=== PATIENT | female | born 1965 | race Caucasian/White ===

== ENCOUNTER 2017-01-24 14:01 | Outpatient (CLI) | payer MEDICAID | END 2017-01-24 14:02 | disposition home or self-care (01) | DX: D68.9 Coagulation defect, unspecified (principal) ==

== ENCOUNTER 2017-01-31 12:35 | Outpatient (CLI) | payer MEDICAID | END 2017-01-31 12:36 | disposition home or self-care (01) | DX: D68.9 Coagulation defect, unspecified (principal) ==

== ENCOUNTER 2017-02-20 10:28 | Outpatient (CLI) | payer MEDICAID | END 2017-02-20 10:29 | disposition home or self-care (01) | DX: D64.9 Anemia, unspecified (principal); D68.9 Coagulation defect, unspecified ==

== ENCOUNTER 2017-03-20 18:46 | Outpatient (CLI) | payer MEDICAID | END 2017-03-20 23:59 | disposition EMS.NT | DX: E16.2 Hypoglycemia, unspecified (principal) ==

== ENCOUNTER 2017-05-08 20:34 | Outpatient (CLI) | payer MEDICAID | END 2017-05-08 20:35 | disposition short-term general hospital (02) | LOC: EMS 20:34 | PROVIDERS: ATTEND Surgery | DX: R52 Pain, unspecified (principal); R53.1 Weakness; Z99.2 Dependence on renal dialysis | CPT/HCPCS: A0425; A0427 ==

== ENCOUNTER 2017-05-31 10:16 | Emergency (ER) | payer MEDICAID ==
--- NOTE | 2017-05-31 11:27 | ED Physician Documentation ---
History of Present Illness - Stated complaint Stated Complaint: SWOLLEN ARM - Chief complaint Chief Complaint: Ext Problem - History obtained from History obtained from: Patient, Family - History of Present Illness Timing: How many days ago (3) - Additonal information Additional information: 51-year-old female with a history of type 1 diabetes for 47 years has developed a swelling in her right arm started with some tenderness at an antecubital site from when she was hospitalized at [facility] 2 weeks ago. She was hospitalized at that time for her renal function being out of control. She is on peritoneal dialysis and required continuous peritoneal dialysis at the time. She has had a similar problem with her left antecubital when an IV caused immediate swelling and required a fasciotomy. She has had this pain in the right antecubital for the past 2 weeks and over the past 3 days she has developed some swelling over the brachial radialis on the right side with a small blister that has now erupted and drained some tiny amount of pus. She felt this area was likely a spider bite several days ago. She has a similar swelling in the axilla on the right side as well. Review of Systems Constitutional: reports: Myalgias, Fatigue. denies: Fever Eyes: denies: Decreased vision Ears: denies: Ear pain Nose: denies: Congestion GI: denies: Vomiting Neurologic: denies: Focal weakness, Numbness PD PAST MEDICAL HISTORY - Past Medical History Cardiovascular: Congestive heart failure, Hypertension, High cholesterol, MS Respiratory: Other Neuro: CVA, Peripheral neuropathy, Motion sickness Endocrine/Autoimmune: Type 1 diabetes GI: Chronic diarrhea : Dialysis, Renal insuffiency, Nocturia Psych: Depression, Anxiety Musculoskeletal: None, Fatigue, Chronic back pain Derm: Herpes zoster - Past Surgical History Past Surgical History: Yes /[employer]: Tubal ligation Cardiovascular: CABG HEENT: Cataracts - Present Medications Home Medications: Ambulatory Orders Medication Instructions Recorded Confirmed Aspirin [Wendy] 81 mg PO DAILY 06/11/13 03/21/17 Insulin Lispro [Humalog] 5 - 10 unit SQ AC 06/11/13 03/21/17 Lovastatin [Mevacor] 20 mg PO HS 06/11/13 03/21/17 Insulin Glargine,Hum.rec.anlog 6 unit SQ BID 11/14/13 03/21/17 [Lantus] Vit B Cmplx 3/FA/Vit C/Biotin 1 each PO DAILY 11/14/13 03/21/17 [Desiree-Bayron Rx Tablet] Acetaminophen 325 - 650 mg PO Q4HR PRN 03/21/17 03/21/17 Ascorbic Acid [Vitamin C] 250 mg PO DAILY 03/21/17 03/21/17 Calcium Carbonate [Tums (Calcium 500 mg PO TID 03/21/17 03/21/17 Carbonate 500mg)] Carvedilol 12.5 mg PO BID 03/21/17 03/21/17 Cholecalciferol (Vitamin D3) 2,000 unit PO DAILY 03/21/17 03/21/17 [Vitamin D] Cyanocobalamin (Vitamin B-12) 500 mcg PO DAILY 03/21/17 03/21/17 [Vitamin B-12 (500 mcg sublingual)] Docusate Sodium 250Mg Capsule 250 mg PO DAILY PRN 03/21/17 03/21/17 [Colace 250Mg Capsule] Loperamide [Imodium] 2 mg PO ONCE PRN 03/21/17 03/21/17 Metoclopramide [Reglan] 5 - 10 mg PO DAILY PRN 03/21/17 03/21/17 Metolazone 5 mg PO DAILY 03/21/17 03/21/17 Nitroglycerin 0.4 mg SL ONCE PRN 03/21/17 03/21/17 Ondansetron HCl [Zofran] 4 mg PO Q4H PRN 03/21/17 03/21/17 Sevelamer Carbonate [Renvela] 800 mg PO TID 03/21/17 03/21/17 Warfarin [Coumadin] 1 mg PO 1400 03/21/17 03/21/17 Doxycycline Hyclate 100 mg PO BID #20 capsule 05/31/17 - Allergies Allergies/Adverse Reactions: Allergies Allergy/AdvReac Type Severity Reaction Status Date / Time Penicillins Allergy Unknown Verified 05/31/17 10:29 Sulfa (Sulfonamide Allergy Hives Verified 05/31/17 10:29 Antibiotics) amoxicillin trihydrate * AdvReac Unknown Itching Verified 05/31/17 10:29 [From Augmentin] codeine AdvReac Unknown Hives Verified 05/31/17 10:29 morphine AdvReac Unknown Hives Verified 05/31/17 10:29 potassium clavulanate * AdvReac Unknown Itching Verified 05/31/17 10:29 [From Augmentin] - Social History Does the pt smoke?: No Smoking Status: Former smoker Does the pt drink ETOH?: No Does the pt have substance abuse?: Yes Substance Use and Type: Marijuana - Immunizations Immunizations are current?: Yes - POLST Patient has POLST: No PD ED PE NORMAL - Vitals Vital signs reviewed: Yes (Normal) - General General: No acute distress, Well developed/nourished - HEENT HEENT: Atraumatic, PERRL - Respiratory Respiratory: No respiratory distress - Derm Derm: Normal color, Warm and dry - Extremities Extremities: Other (Over the right brachial radialis the skin is swollen without significant erythema. Over the antecubital there is acute erythema and swelling all of the areas palpated are firm and tender. There is a single less than 1 cm blister over the brachial radialis the drains a tiny amount of pus. Ultrasound examination of the area demonstrates septations consistent with swelling and cellulitis without obvious fluid collection.) - Neuro Neuro: No motor deficit, No sensory deficit - Psych Psych: Normal mood, Normal affect Results - Vitals Vitals: Vital Signs - 24 hr 05/31/17 10:25 Temperature 36.1 C L Heart Rate 81 Respiratory 18 Rate Blood Pressure 112/65 O2 Saturation 99 Oxygen O2 Source Room air PD MEDICAL DECISION MAKING - ED course Complexity details: reviewed old records, considered differential, d/w patient, d/w family ED course: 51-year-old female with a developing right forearm abscess has swelling without fluid collection consistent with an unripe abscess or cellulitis. She is allergic to Augmentin and Septra and we will place her on some doxycycline. I have indicated to her that if she gets sicker to return to the emergency department and she may have ripening of this and this would be another reason to return to the emergency department. She will use a warm compress and take the antibiotic. Culture of the area has been obtained. Departure - Departure Disposition: 01 Home, Self Care Clinical Impression: Cellulitis Qualifiers: Site of cellulitis: extremity Site of cellulitis of extremity: upper extremity Laterality: right Qualified Code(s): L03.113 - Cellulitis of right upper limb Condition: Stable Instructions: ED Infec Skin Cellulitis, ED Staph Infec Abx Tx Only Follow-Up: Latoya Nance PA-C [Primary Care Provider] - Prescriptions: Doxycycline Hyclate 100 mg PO BID #20 capsule
[2017-05-31 11:41] VITALS: BP 115/66
== END 2017-05-31 11:40 | disposition home or self-care (01) ==
LOC: ED 10:16
DX: L03.113 Cellulitis of right upper limb (principal); I10 Essential (primary) hypertension; E10.42 Type 1 diabetes mellitus with diabetic polyneuropathy; I25.2 Old myocardial infarction; Z86.73 Personal history of transient ischemic attack (TIA), and cerebral infarction without residual deficits; Z95.1 Presence of aortocoronary bypass graft; Z79.82 Long term (current) use of aspirin; Z87.891 Personal history of nicotine dependence
CPT/HCPCS: 87070; 87077; 87205; 99283; 99284

== ENCOUNTER 2017-06-02 08:59 | Emergency (ER) | payer MEDICAID ==
[2017-06-02] MEDS ORDERED: HYDROmorphone 1 MG/ML SYRINGE IVP STA ×3 (10:13→14:59)
[2017-06-02] MEDS ORDERED: ONDANSETRON 4 MG/2 ML VIAL IVP STA (10:13)
[2017-06-02] MEDS ORDERED: HYDROmorphone 1 MG/ML SYRINGE ONE ×3 (10:14→14:59)
[2017-06-02] MEDS ORDERED: ONDANSETRON 4 MG/2 ML VIAL ONE (10:14)
[2017-06-02] MEDS ORDERED: VANCOMYCIN INJ 1 GM in SODIUM CHLORIDE 0.9% 250 ML IV STA (13:49)
[2017-06-02] MEDS ORDERED: VANCOMYCIN 1 GM VIAL ONE (13:53)
[2017-06-02] MEDS ORDERED: cefTRIAXone 1 GM in SODIUM CHLORIDE 0.9% MINIBAG 100 ML IV STA (14:17)
[2017-06-02] MEDS ORDERED: cefTRIAXone 1 GM VIAL ONE (14:17)
== END 2017-06-02 15:06 | disposition short-term general hospital (02) ==
DX: L03.113 Cellulitis of right upper limb (principal); T82.7XXA Infection and inflammatory reaction due to other cardiac and vascular devices, implants and grafts, initial encounter; E10.21 Type 1 diabetes mellitus with diabetic nephropathy; E10.42 Type 1 diabetes mellitus with diabetic polyneuropathy; Z79.4 Long term (current) use of insulin; Z99.2 Dependence on renal dialysis; Z88.0 Allergy status to penicillin; I11.0 Hypertensive heart disease with heart failure; I50.9 Heart failure, unspecified; E78.00 Pure hypercholesterolemia, unspecified; I25.2 Old myocardial infarction; I25.10 Atherosclerotic heart disease of native coronary artery without angina pectoris; Z95.1 Presence of aortocoronary bypass graft; Z86.73 Personal history of transient ischemic attack (TIA), and cerebral infarction without residual deficits; Z79.01 Long term (current) use of anticoagulants; Z79.82 Long term (current) use of aspirin; Z87.891 Personal history of nicotine dependence
CPT/HCPCS: 36415; 80053; 83605; 83690; 85025; 85651; 96374; 96375; 96376; 99284; 99285; J1170; J3370

== ENCOUNTER 2017-06-02 15:21 | Outpatient (CLI) | payer MEDICAID | END 2017-06-02 15:22 | disposition short-term general hospital (02) | DX: L02.413 Cutaneous abscess of right upper limb (principal) | CPT/HCPCS: A0425; A0428 ==

== ENCOUNTER 2017-06-26 12:15 | Outpatient (CLI) | payer MEDICAID | END 2017-06-26 12:16 | disposition home or self-care (01) | LOC: LAB.R 12:15 | PROVIDERS: ATTEND Physician Assistant Medical | DX: A49.02 Methicillin resistant Staphylococcus aureus infection, unspecified site (principal) | CPT/HCPCS: 87070; 87640 ==

== ENCOUNTER 2017-06-26 12:51 | Outpatient (CLI) | payer MEDICAID ==
[2017-06-26 19:25] LABS: BASOPHILS # (AUTO) 0.1 10^3/uL (0.0-0.1); BASOPHILS % (AUTO) 1.4 %; EOSINOPHILS # (AUTO) 0.5 10^3/uL (0.0-0.7); EOSINOPHILS % (AUTO) 4.6 %; HCT - HEMATOCRIT 28.2 % (37.0-47.0); HGB - HEMOGLOBIN 9.3 g/dL (12.0-16.0); LYMPHOCYTES # (AUTO) 1.2 10^3/uL (1.5-3.5); MEAN CORPUSCULAR HEMOGLOBIN 32.4 pg (27.0-31.0); MEAN CORPUSCULAR HGB CONC 32.9 g/dL (32.0-36.0); MEAN CORPUSCULAR VOLUME 98.7 fL (81.0-99.0); MEAN PLATELET VOLUME 7.8 fL (7.9-10.8); MONOCYTES # (AUTO) 0.9 10^3/uL (0.0-1.0); MONOCYTES % (AUTO) 9.1 %; NEUTROPHILS # (AUTO) 7.3 10^3/uL (1.5-6.6); NEUTROPHILS % (AUTO) 72.9 %; NUCLEATED RED BLOOD CELLS AUTO 0.4 /100WBC; RED BLOOD COUNT 2.86 10^6/uL (4.20-5.40); RED CELL DISTRIBUTION WIDTH 22.1 % (12.0-15.0); UNCORRECTED WHITE BLOOD COUNT 10.1 x10^3/uL; WHITE BLOOD COUNT 10.1 x10^3/uL (4.8-10.8)
[2017-06-26 19:43] LABS: PLATELET ESTIMATE, MANUAL INCREASED (>450,000) (NORMAL); PLATELET MORPHOLOGY NORMAL APPEARANCE (NORMAL)
[2017-06-26 20:06] LABS: ALBUMIN/GLOBULIN RATIO 0.6 (1.0-2.2); BILIRUBIN,TOTAL 0.3 mg/dL (0.2-1.0); CALCIUM 8.2 mg/dL (8.5-10.3); POTASSIUM 3.8 mmol/L (3.5-5.0); TOTAL PROTEIN 6.9 g/dL (6.7-8.2)
== END 2017-06-26 12:52 ==
LOC: LAB.WCP 12:51
PROVIDERS: ATTEND Physician Assistant Medical
DX: E87.5 Hyperkalemia (principal); D64.9 Anemia, unspecified
CPT/HCPCS: 36415; 80053; 85025; 87070; 87640

== ENCOUNTER 2017-08-02 06:13 | Outpatient (CLI) | payer MEDICAID | END 2017-08-02 06:14 | disposition EMS.NT | LOC: EMS 06:13 | PROVIDERS: ATTEND Surgery | DX: R41.82 Altered mental status, unspecified (principal); E16.2 Hypoglycemia, unspecified ==

== ENCOUNTER 2017-08-06 10:25 | Outpatient (CLI) | payer MEDICAID ==
[2017-08-06 14:56] LABS: HEMOGLOBIN A1C 0.51 g/dL
[2017-08-06 15:12] LABS: CHOL/HDL RATIO 1.8 (<4.4); CHOLESTEROL 162 mg/dL; HDL CHOLESTEROL 90 mg/dL; LDL/HDL RATIO 0.7 (<4.4); TRIGLYCERIDES 61 mg/dL; VLDL CHOLESTEROL 12 mg/dL
== END 2017-08-06 10:26 | disposition home or self-care (01) ==
LOC: LAB.WCP 10:25
PROVIDERS: ATTEND Physician Assistant Medical
DX: E10.9 Type 1 diabetes mellitus without complications (principal)
CPT/HCPCS: 36415; 80061; 83036; 84443

== ENCOUNTER 2017-11-18 08:00 | Outpatient (CLI) | payer MEDICAID | END 2017-11-18 08:01 | disposition home or self-care (01) | LOC: LAB.R 08:00 | PROVIDERS: ATTEND Physician Assistant Medical | DX: H60.502 Unspecified acute noninfective otitis externa, left ear (principal) | CPT/HCPCS: 87070; 87205 ==